=== PATIENT | female | born 1990 | race Two or more races ===

== ENCOUNTER → 2022-09-12 | Emergency (ER) | payer OTHER ==
[~2022-09-12] VITALS: Ht 154.9 cm; Wt 85.3 kg
== END | disposition home or self-care (01) ==
LOC: ER 09:08
DX: O26.892 Other specified pregnancy related conditions, second trimester (principal); Z3A.20 20 weeks gestation of pregnancy; R51.9 Headache, unspecified

== ENCOUNTER 2023-01-06 12:04 | Inpatient (IN) | payer OTHER ==
[~2023-01-06] VITALS: Ht 154.9 cm; Wt 96.6 kg
[2023-01-23] MEDS ORDERED: PRENATAL TABLE1 EAC1 PO (08:14)
== END 2023-01-25 15:35 | disposition home or self-care (01) | DRG 807 ==
LOC: LDR 01-23 07:54 → OB/GYN 01-23 17:25
PROVIDERS: ADMIT Obstetrics & Gynecology Gynecology; ATTEND Obstetrics & Gynecology Gynecology
PROC: 10E0XZZ Delivery of Products of Conception, External Approach (ICD-10-PCS; principal; 2023-01-23)
PROC: 0KQM0ZZ Repair Perineum Muscle, Open Approach (ICD-10-PCS; 2023-01-23)
PROC: 0W8NXZZ Division of Female Perineum, External Approach (ICD-10-PCS; 2023-01-23)
PROC: 4A1HXCZ Monitoring of Products of Conception, Cardiac Rate, External Approach (ICD-10-PCS; 2023-01-23)
DX: O70.1 Second degree perineal laceration during delivery (principal); Z37.0 Single live birth; Z3A.39 39 weeks gestation of pregnancy; Z20.822 Contact with and (suspected) exposure to COVID-19

== ENCOUNTER 2023-01-20 13:56 | Outpatient (CLI) | payer OTHER | END 2023-01-20 14:55 | disposition home or self-care (01) | LOC: NST 13:56 | PROVIDERS: ATTEND Obstetrics & Gynecology | DX: Z34.83 Encounter for supervision of other normal pregnancy, third trimester (principal) ==

== ENCOUNTER 2024-10-28 07:15 | Outpatient (CLI) | payer OTHER ==
[~2024-10-28 07:15] MED LIST: PRENATAL TABLE1 EAC1 PO
[2024-10-28 08:07] LABS: HEMATOCRIT 38.7 % (36.0-45.00); HEMOGLOBIN 13.1 g/dL (12.0-15.00); MEAN CELL VOLUME 87.2 fL (80.00-100.00); MEAN CORPUSCULAR HEMOGLOBIN 29.6 pg (27.00-32.0); MEAN CORPUSCULAR HGB CONC 33.9 g/dl (32.0-36.0); PLATELET COUNT 385 K/uL (150-450); RED BLOOD COUNT 4.44 M/uL (4.00-6.00); RED CELL DISTRIBUTION WIDTH 13.7 % (11.5-14.5)
[2024-10-28 08:08] LABS: PH,URINE 6.5 (5.0-8.0); URINE APPEARANCE Clear; URINE BILIRRUBIN Negative (NEGATIVE); URINE BLOOD Negative; URINE COLOR Yellow; URINE GLUCOSE Negative (NEGATIVE); URINE KETONE Negative (NEGATIVE); URINE LEUKOCYTE Moderate; URINE NITRATE Negative; URINE PROTEIN Negative (NEGATIVE)
[2024-10-28 08:11] LABS: URINE BACTERIA 3184.9 uL (0.0-1933); URINE EPITHELIAL CELLS 30.6 uL (0.0-38.8); URINE RBC 31.9 uL (0.0-20.8); URINE WBC 193.5 uL (0.0-23.2)
[2024-10-28 08:54] LABS: URINE CAST 0.15 uL (0.0-1.40)
[2024-10-28 09:34] LABS: ALBUMIN 3.9 gm/dL (3.4-5.0); BILIRUBIN TOTAL 0.45 mg/dL (0.3-1.2); CALCIUM 9.3 mg/dL (8.5-10.1); CHOL HDL RATIO 3.1 (0-5.0); CREATININE SERUM 0.78 mg/dL (0.55-1.02); GFR 85.59; GLOBULINA 3.5 G/DL (2.4-3.5); POTASSIUM 4.09 mEq/L (3.5-5.1); TOTAL PROTEIN 7.4 gm/dL (6.4-8.2); TSH 1.91 uIU/mL (0.358-3.74)
== END 2024-10-28 12:55 | disposition home or self-care (01) ==
LOC: LAB 07:15
PROVIDERS: ATTEND Obstetrics & Gynecology Gynecology
DX: E03.8 Other specified hypothyroidism (principal); D63.8 Anemia in other chronic diseases classified elsewhere; N30.90 Cystitis, unspecified without hematuria; E78.00 Pure hypercholesterolemia, unspecified; R73.9 Hyperglycemia, unspecified; K92.1 Melena; Z12.11 Encounter for screening for malignant neoplasm of colon; E55.9 Vitamin D deficiency, unspecified; Z32.00 Encounter for pregnancy test, result unknown; Z23 Encounter for immunization

== ENCOUNTER 2024-11-01 07:39 | Outpatient (CLI) | payer OTHER | END 2024-11-01 07:47 | disposition home or self-care (01) | LOC: MAMO-SONO 07:39 | PROVIDERS: ATTEND Obstetrics & Gynecology Gynecology | DX: N63 Unspecified lump in breast (principal); N64.4 Mastodynia; N60.11 Diffuse cystic mastopathy of right breast ==

== ENCOUNTER → 2025-05-08 06:41 | Outpatient (CLI) | payer OTHER ==
[2025-05-08 07:47] LABS: URINE APPEARANCE Turbid; URINE BILIRRUBIN Negative (NEGATIVE); URINE BLOOD Negative; URINE COLOR Yellow; URINE GLUCOSE Negative (NEGATIVE); URINE KETONE Negative (NEGATIVE); URINE LEUKOCYTE Trace; URINE NITRATE Negative; URINE PROTEIN Trace (NEGATIVE)
[2025-05-08 07:50] LABS: URINE BACTERIA 53.8 uL (0.0-1933); URINE EPITHELIAL CELLS 16.2 uL (0.0-38.8); URINE RBC 15.9 uL (0.0-20.8); URINE WBC 8.6 uL (0.0-23.2)
[2025-05-08 07:51] LABS: BASO % 0.6 % (0.1-1.2); EOS # 0.23 (0.04-0.54); EOS % 2.6 % (0.7-7.0); HEMATOCRIT 35.5 % (34.1-44.9); HEMOGLOBIN 12.1 g/dL (11.2-15.7); LYMPH # 1.83 (1.18-3.74); MEAN CORPUSCULAR HEMOGLOBIN 29.3 pg (25.6-32.2); MONO # 0.55 (0.24-0.82); MONO % 6.3 % (4.7-12.5); NEUT # 6.04 (1.56-6.13); NEUT % 69.3 % (34.0-71.1); PLATELET COUNT 373 K/uL (163-369); RED BLOOD COUNT 4.13 M/uL (3.93-5.22); RED CELL DISTRIBUTION WIDTH 12.6 % (11.6-14.4); URINE CAST 0.14 uL (0.0-1.40)
[2025-05-08 09:23] LABS: ALBUMIN 3.4 gm/dL (3.4-5.0); BILIRUBIN TOTAL 0.37 mg/dL (0.3-1.2); CALCIUM 8.8 mg/dL (8.5-10.1); CREATININE SERUM 0.52 mg/dL (0.55-1.02); GFR 135.8; GLOBULINA 3.5 G/DL (2.4-3.5); POTASSIUM 3.89 mEq/L (3.5-5.1); T4 FREE 1.1 NG/ML (0.76-1.46); TOTAL PROTEIN 6.9 gm/dL (6.4-8.2); TSH 1.17 uIU/mL (0.358-3.74)
[2025-05-08 09:47] LABS: RH POSITIVE
[2025-05-08 15:27] LABS: RAPID PLASMA REAGIN NONREACTIVE BY RPR (NONREACTIVE)
[2025-05-09 05:07] LABS: HEPATITIS B CORE IGM Negative (Negative); HEPATITIS B SURFACE ANTIBODY Reactive (.); HEPATITIS C VIRUS ANTIBODY Non Reactive (Non Reactive)
[2025-05-09 09:08] LABS: PROGESTERONA 23.8 ng/mL (.); RUBELLA IGG 4.52 index (Immune >0.99); VARICELLA ZOSTER VIRUS IGG Reactive (Non Reactive)
[2025-05-09 15:12] LABS: hgb a 97.4 % (96.4-98.8); hgb a2 2.6 % (1.8-3.2); hgb f 0 % (0.0-2.0); hgb s 0 % (0.0)
[2025-05-09 23:07] LABS: chla t Negative (Negative); neiss Negative (Negative)
== END | disposition home or self-care (01) ==
LOC: LAB 06:41
PROVIDERS: ATTEND Obstetrics & Gynecology Gynecology
DX: E03.9 Hypothyroidism, unspecified (principal); N30.00 Acute cystitis without hematuria

== ENCOUNTER → 2025-07-16 10:38 | Outpatient (CLI) | payer OTHER ==
[2025-07-16 11:33] LABS: URINE APPEARANCE Clear; URINE BILIRRUBIN Negative (NEGATIVE); URINE BLOOD Trace; URINE COLOR Yellow; URINE GLUCOSE Negative (NEGATIVE); URINE KETONE Trace (NEGATIVE); URINE LEUKOCYTE Negative; URINE NITRATE Negative; URINE PROTEIN Negative (NEGATIVE); URINE UROBILINOGEN 1.0 E.U./dl
[2025-07-16 11:40] LABS: URINE BACTERIA 88.7 uL (0.0-1933); URINE EPITHELIAL CELLS 10.4 uL (0.0-38.8); URINE RBC 15.6 uL (0.0-20.8); URINE WBC 5.3 uL (0.0-23.2)
[2025-07-16 12:12] LABS: URINE CAST 0.00 uL (0.0-1.40)
[2025-07-18 09:08] LABS: HEPATITIS C VIRUS ANTIBODY Non Reactive (Non Reactive)
== END | disposition home or self-care (01) ==
LOC: LAB 10:38
PROVIDERS: ATTEND Obstetrics & Gynecology Maternal & Fetal Medicine
DX: Z34.81 Encounter for supervision of other normal pregnancy, first trimester (principal); N30.00 Acute cystitis without hematuria; B16.9 Acute hepatitis B without delta-agent and without hepatic coma

== ENCOUNTER 2025-08-29 06:30 | Outpatient (CLI) | payer OTHER ==
[2025-08-29 07:29] LABS: BASO % 0.5 % (0.1-1.2); EOS # 0.18 (0.04-0.54); EOS % 2.4 % (0.7-7.0); LYMPH # 1.42 (1.18-3.74); LYMPH % 19.1 % (19.3-53.1); MEAN PLATELET VOLUME 9.60 fl (9.4-12.4); MONO # 0.54 (0.24-0.82); MONO % 7.3 % (4.7-12.5); NEUT # 5.21 (1.56-6.13); NEUT % 70.3 % (34.0-71.1); RED CELL DISTRIBUTION WIDTH 13.0 % (11.6-14.4)
[2025-08-29 08:05] LABS: GLUCOSE FASTING 96 mg/dL (65-100)
== END 2025-08-29 06:35 | disposition home or self-care (01) ==
LOC: LAB 06:30
PROVIDERS: ATTEND Obstetrics & Gynecology Gynecology
DX: O09.72 Supervision of high risk pregnancy due to social problems, second trimester (principal)

== ENCOUNTER 2025-09-19 17:27 | Outpatient (CLI) | payer OTHER ==
[~2025-09-19] VITALS: Ht 154.9 cm; Wt 95.3 kg
[2025-09-19 16:58] VITALS: BP 118/69
[2025-09-19 19:42] VITALS: BP 127/78
[2025-09-19 23:23] VITALS: BP 125/74
[2025-09-20 03:43] VITALS: BP 120/73; O2SAT 100
[2025-09-20 07:52] VITALS: BP 111/69
[2025-09-20 11:40] VITALS: BP 111/69
== END 2025-09-20 11:40 | disposition home or self-care (01) ==
LOC: OBS/DEL 17:27
PROVIDERS: ATTEND Obstetrics & Gynecology
DX: O26.893 Other specified pregnancy related conditions, third trimester (principal); T14.8XXA Other injury of unspecified body region, initial encounter; W18.30XA Fall on same level, unspecified, initial encounter; Z3A.28 28 weeks gestation of pregnancy

== ENCOUNTER → 2025-10-08 06:29 | Outpatient (CLI) | payer OTHER ==
[2025-10-08 07:39] LABS: URINE APPEARANCE Clear; URINE BILIRRUBIN Negative (NEGATIVE); URINE BLOOD Negative; URINE COLOR Yellow; URINE GLUCOSE Negative (NEGATIVE); URINE KETONE Negative (NEGATIVE); URINE LEUKOCYTE Negative; URINE NITRATE Negative; URINE PROTEIN Negative (NEGATIVE); URINE UROBILINOGEN 0.2 E.U./dl
[2025-10-08 07:42] LABS: URINE BACTERIA 109.1 uL (0.0-1933); URINE EPITHELIAL CELLS 23.1 uL (0.0-38.8); URINE RBC 13.1 uL (0.0-20.8); URINE WBC 12.9 uL (0.0-23.2)
[2025-10-08 08:21] LABS: URINE CAST 0.29 uL (0.0-1.40)
== END | disposition home or self-care (01) ==
LOC: LAB 06:29
PROVIDERS: ATTEND Obstetrics & Gynecology
DX: Z34.83 Encounter for supervision of other normal pregnancy, third trimester (principal)